=== PATIENT | male | born 1955 | race Caucasian/White ===

== ENCOUNTER 2024-05-24 17:00 | Emergency (ER) | payer OTHER, SELFPAY ==
[2024-05-24 17:19] VITALS: BP 129/67
[2024-05-24 18:13] VITALS: BMI 31.0
--- NOTE | 2024-05-24 19:03 | ED.SKININJ ---
HPI-Injury
General
Chief Complaint: Head Injury
Source: patient
Exam Limitations: none
Time Seen by Provider: 05/24/24 17:38
Nursing documentation reviewed up to this point in time: agreed with
History of Present Illness-Injury
Initial Injury comments:
69 yo male missed a step off a deck and face planted onto concrete patio within past hour. Denies LOC, denies neck, back or any other pain/injury. Was able to get right up. Denies headache or change in vision. No thinners. Laceration bridge of nose,
deep scraped mid forehead. Went to and sent her for CT scan. Unsure of last dT
Past History
Past History
ED Past Surgical History: Urological (Prostatectomy)
Social History
Tobacco: Non-smoker
Personal:
Living: with family
Review of Systems
Review of Systems
Allergies reviewed?: Yes
All Other Systems: ROS reviewed and negative except as documented in HPI and ROS
Cardiac: Denies chest pain or syncope
ABD/GI: Denies abdominal pain, nausea or vomiting
Musculoskeletal: Denies joint pain, neck pain or back pain
Skin: Reports other (scrape forehead, cut on nose)
Neurological: Denies dizzy, headache, weakness or numbness
Skin Exam
Laceration
bridge of nose:
Length in cm: 1 ('V' shaped)
Any active bleeding?: low grade venous oozing
Phy Exam
Physical Exam
Physical Exam:
GENERAL: No acute distress. A&Ox3.
CONSTITUTIONAL: Afebrile.
EYES: PERRL, conjunctivae normal
Neck: Supple
ENMT: moist mucus membranes, Pharynx nl, no epistaxis.
RESPIRATORY: Regular respirations, nonlabored, lungs clear.
CARDIOVASCULAR: Regular rate and rhythm, no murmurs, no rubs.
GI: Soft, nontender, normal BS
MUSCULOSKELETAL: No spinal bony tenderness, no extremity tenderness, full ROM. Moves with ease. Well perfused.
SKIN: Warm, dry, pink. Deep clean abrasion mid forehead, swelling, laceration bridge of nose.
PSYCH: Normal mood and affect. Well kept, interactive and appropriate
NEUROLOGIC: Awake, alert and oriented. CN 2-12 intact. No focal neurological deficits. Ambulates well with steady gait.
Course
Orders/Labs/Results
Orders:
Orders
05/24/24 18:10
CT Head W/o Iv Contrast Urgent
Comment:
Reason For Exam: face planted on concrete, abrasion mid forehead
Lidocaine/Epinephrine/Tetracai [Let Topical Anesthetic Gel] 3 ml TOPICAL NOW STA
05/24/24 18:11
Tetanus/Diphth/Acelpertussis [Adacel] 0.5 ml IM .ONCE ONE
Nasal Bones, complete 3 Views [CR Nasal Bones Comp Min 3 View] Urgent
Comment:
Reason For Exam: fell, face plant on concrete, lac nose
05/24/24 20:21
Cephalexin Monohydrate [Keflex] 500 mg PO NOW STA
Vital Signs
Initial and Last Documented VS:
Initial Vital Signs
Temp Pulse Resp BP Pulse Ox
98 F 73 16 129/67 98
05/24/24 17:19 05/24/24 17:19 05/24/24 17:19 05/24/24 17:19 05/24/24 17:19
Last Documented Vital Signs
Temp Pulse Resp BP Pulse Ox
98 F 86 20 128/66 98
05/24/24 17:19 05/24/24 19:10 05/24/24 20:00 05/24/24 19:10 05/24/24 19:10
Procedures
Laceration Closure
bridge of nose:
Status of Wound: clean
Size of Wound in cm: 1 ('V' shaped)
Description of Wound Edges: flap-well vascularized
Preparation: cleaned with saline
Anesthesia: Topical-LET
Revision/Debridement: routine- no revision
Wound exploration: explored to base- no FB
Type of Closure: single layer closure
Skin Closure Material: 5-0 vicryl
Number of sutures: 6
Additional information:
antibiotic ointment applied
MDM/Problems Addressed
Differential Diagnosis Includes:
concussion, skull fx
nasal bone fracture vs contusion.
MDM/Problems Addressed:
69 yo male missed a step off a deck and face planted onto concrete patio within past hour. Denies LOC, denies neck, back or any other pain/injury. Was able to get right up. Denies headache or change in vision. No thinners. Laceration bridge of nose,
deep scraped mid forehead. Went to and sent her for CT scan. Unsure of last dT
No focal neuro deficits,NAD
dT updated
Nasal wound sutured
8:[address] shows nothing acute
Nasal bone x-ray: Comminuted
fracture of the nasal bone nondisplaced
Pt prescribed Keflex for open nasal bone fracture.
Pt OOB and ambulating well
Stable for discharge.
*Critical Care Note
Total Time (30-74mins, 75-104mins- exclusive of procedures): Not Applicable
ED Attending Note
-
Portions of this chart may have been created with voice recognition software.� Occasional wrong word or��sound alike� substitutions may have occurred due to the inherent limitations of voice recognition software.
Discharge Plan
Departure
Patient Disposition: Home (Routine Discharge)
Date of Disposition: 05/24/24
Time of Disposition: 20:25
Patient with high blood pressure during this ER visit?: No
Condition: Good
Discharge Problem:
Fall from slip, trip, or stumble, Abrasion of forehead, Laceration of nose, Abrasion of right forearm
Instructions: Head Injury in Adults (DC), Laceration Repair With Stitches (DC), Abrasions ED
Prescriptions:
New
cephalexin 500 mg capsule
500 mg PO QID 7 Days Qty: 28 0RF
Referrals:
FRITZ TURNER [Other]
Activity Restrictions/Additional Instructions:
As we discussed, your head CT is normal
You have fractured your nasal bone.
Start the Keflex tomorrow as you were given a dose here today.
The sutures should dissolve/fall out within 2 weeks. Wash facial wounds daily with soap and water, apply antibiotic ointment.
seek medical care immediately for confusion, vomiting, headache unrelieved with Tylenol as these may be signs of concussion.
Interventions
Interventions:
*Risk Screen - Suicide Last Done: 05/24/24 17:19
*General Assessment Last Done: 05/24/24 17:19
*Neglect/Abuse Screening Last Done: 05/24/24 17:19
*ED COVID-19 Vaccine History Last Done: 05/24/24 19:08
ED- Neurological Assessment Last Done: 05/24/24 18:13
ED-Skin Assessment Last Done: 05/24/24 18:13
Discharge Date and Time
Print Language: [id number]
[2024-05-24] MEDS: LET TOPICAL ANESTHETIC GEL 3 ML TOPICAL (19:04)
[2024-05-24] MEDS: ADACEL 0.5 ML IM (19:05)
[2024-05-24 19:10] VITALS: BP 128/66
[2024-05-24] MEDS: KEFLEX 500 MG PO (20:29)
== END 2024-05-24 20:55 | disposition home or self-care (01) ==
LOC: EMR 17:00
PROVIDERS: EMERGENCY PHYSICIAN Emergency Medicine
DX: S50.811A Abrasion of right forearm, initial encounter (principal); S00.81XA Abrasion of other part of head, initial encounter; S02.2XXB Fracture of nasal bones, initial encounter for open fracture; W10.9XXA Fall (on) (from) unspecified stairs and steps, initial encounter; Z23 Encounter for immunization
CPT/HCPCS: 99284; 90471; 70160; 70450; 90715